=== PATIENT | male | born 1995 | race Caucasian/White ===

== ENCOUNTER → 2018-01-05 | Outpatient (CLI) | payer BC ==
[~2018-01-05] MED LIST: CEPH500T7 PO; SERT-173 PO
--- NOTE | 2018-01-05 15:23 | RADIOLOGY IMAGING REPORT ---
FACILITY: [facility] - [place] PATIENT NAME: Dago Dhillon : 1995 MR: [id number] V: [id number] EXAM DATE: ORDERING PHYSICIAN: MADDY ENCARNACION TECHNOLOGIST: Location: [facility] Patient: Dago Dhillon : 1995 Visit/Account:[id number] Date of Sevice: 01/05/2018 Exam type: CALCANEUS (HEEL) RIGHT History: Heel injury x2 weeks, getting worse Comparison: None. Findings: Two views of the right os calcis demonstrates no evidence of acute fracture. The subtalar joint appe ars intact. There is an ovoid sclerotic lesion in the right os calcis which may represent a bone isl and. IMPRESSION: 1. No evidence of fracture involving the right os calcis identified. If patient's symptoms persist cross-sectional imaging may be helpful Report Dictated By: Janay Muir MD at 01/05/2018 3:17 PM Report E-Signed By: Janay Muir MD at 01/05/2018 3:19 PM WSN:[email or web address]
== END ==
LOC: RAD 14:38
PROVIDERS: ATTEND Family Medicine
DX: M79.671 Pain in right foot (principal)

== ENCOUNTER 2018-01-09 23:22 | Observation (INO) | payer BC ==
[~2018-01-09] VITALS: Ht 193 cm; Wt 70.3 kg
--- NOTE | 2018-01-09 23:30 | ER Report ---
History and Physical Time Seen By MD: 23:26 HPI/ROS CHIEF COMPLAINT: sob/epigastric/cp HISTORY OF PRESENT ILLNESS: PT started 3 days ago with epigastric pain that goes up his sterunum. Pain is sharp. worse with lying flat or taking a deep breath. has not been eating well. no change in pain with drinking. no nauesa or vomiting. PT arrived crying and hyperventilating due to the pain. Pt stopped his lexipro 2 days ago because he read the side effects and was concerned that was making his symptoms worse. no fevers. + occasional cough. REVIEW OF SYSTEMS: Constitutional: No fever, no chills. Eyes: No discharge. ENT: No sore throat. Cardiovascular: + chest pain, no palpitations. Respiratory: + cough, + shortness of breath, + hyperventilating Gastrointestinal: + abdominal pain, no vomiting. Genitourinary: No hematuria. Musculoskeletal: No back pain. Skin: No rashes. Neurological: No headache. Psych: anxious Allergies: Coded Allergies: codeine (Verified Allergy, Mild, NIGHT TERRORS, 09/04/16) Home Meds Reported Medications Propranolol Hcl (PROPRANOLOL HCL) 10 Mg Tablet, 10 MG PO PRN Y for ANXIETY 01/09/18 Buspirone Hcl (BUSPIRONE HCL) 30 Mg Tablet, 15 MG PO BID, #10 TAB 01/09/18 Escitalopram Oxalate (LEXAPRO) 20 Mg Tablet, 10 MG PO QDAY, TAB 01/09/18 Discontinued Reported Medications Sertraline Hcl (ZOLOFT) 100 Mg Tablet, 2 TAB PO QDAY, TAB 05/13/16 Discontinued Scripts Cephalexin 500 Mg Tab (KEFLEX 500 MG TAB) 500 Mg Tablet, 500 MG PO TID, #21 TAB Prov:NANDO MARSHALL 09/04/16 Past Medical/Surgical History Pmhx, anxiety, depression Pshx: neg Reviewed Nurses Notes: Yes Hx Smoking: No Smoking Status: Never Smoker Hx Substance Use Disorder: No Constitutional Vital Sign - Last 24 Hours 01/09/18 01/09/18 01/09/18 01/09/18 23:28 23:30 23:37 23:52 Temp 98.5 Pulse 137 124 112 Resp 26 24 20 B/P (MAP) 153/107 131/77 (95) Pulse Ox 99 100 96 O2 Delivery Room Air 01/10/18 01/10/18 01/10/18 01/10/18 00:00 00:07 00:22 00:30 Pulse 100 93 Resp 12 B/P (MAP) 137/92 (107) 129/79 (96) Pulse Ox 99 01/10/18 00:37 Pulse ??? Resp 8 Pulse Ox 82 Physical Exam General Appearance: The patient is alert, tearful and hyperventilating Eyes: Pupils equal and round no pallor or injection, EOMI ENT: no pharyngeal erythema or exudates, Mucous membranes are moist Respiratory: There are no retractions, lungs are clear to auscultation. Cardiovascular: Regular rate and rhythm. pulses are equal and symmetrical Gastrointestinal: Abdomen is soft and non tender, no masses, bowel sounds normal, no guarding, no rigidity or rebound Neurological: Cranial nerves II-XII grossly intact, no sensory or motor loss Skin: Warm and dry, no rashes. Musculoskeletal: Neck is supple non tender, no vertebral tenderness Extremities are nontender, non swollen and have full range of motion. DIFFERENTIAL DIAGNOSIS: After history and physical exam differential diagnosis was considered for anxiety, gerd, pud, pleurisy, pericarditis, pe, pancreatitis , pneumonia, ptx. Medical Decision Making Data Points Result Diagram: 01/10/18 0030 01/10/18 0030 Laboratory Hematology Test 01/09/18 00:00 01/09/18 22:32 01/09/18 23:46 01/10/18 00:00 Troponin I < 0.012 ng/ml D-Dimer Quantitative (PE/DVT) < 0.27 ug/ml (0-0.50) Total Bilirubin 0.9 mg/dl (0.2-1.3) Aspartate Amino Transf (AST/SGOT) 22 U/L (0-35) Alanine Aminotransferase (ALT/SGPT) 22 U/L (0-56) Alkaline Phosphatase 113 U/L (0-126) Total Protein 8.7 gm/dl (6.3-8.2) Albumin 4.9 g/dl (3.5-5.0) Lipase 84 U/L (23-300) Influenza Virus Type A (PCR) Negative (NEGATIVE) Influenza Virus Type B (PCR) Negative (NEGATIVE) Urine Opiates Screen Negative Urine Barbiturates Screen Negative Ur Tricyclic Antidepressants Screen Negative Urine Phencyclidine Screen Negative Urine Amphetamines Screen Negative Urine Benzodiazepines Screen Negative Urine Cocaine Screen Negative Urine Cannabinoids Screen Positive Test 01/10/18 00:30 Red Blood Count 4.94 M/uL (4.00-5.60) Mean Corpuscular Volume 88.1 fL (80.0-96.0) Mean Corpuscular Hemoglobin 32.0 pg (26.0-33.0) Mean Corpuscular Hemoglobin Concent 36.4 g/dL (32.0-36.0) Red Cell Distribution Width 13.2 % (11.5-14.5) Mean Platelet Volume 8.0 fL (7.2-11.1) Neutrophils (%) (Auto) 63.3 % (39.4-72.5) Lymphocytes (%) (Auto) 27.7 % (17.6-49.6) Monocytes (%) (Auto) 7.2 % (4.1-12.4) Eosinophils (%) (Auto) 1.4 % (0.4-6.7) Basophils (%) (Auto) 0.4 % (0.3-1.4) Nucleated RBC Relative Count (auto) 0.0 /100WBC Neutrophils # (Auto) 7.5 K/uL (2.0-7.4) Lymphocytes # (Auto) 3.3 K/uL (1.3-3.6) Monocytes # (Auto) 0.9 K/uL (0.3-1.0) Eosinophils # (Auto) 0.2 K/uL (0.0-0.5) Basophils # (Auto) 0.0 K/uL (0.0-0.1) Nucleated RBC Absolute Count (auto) 0.00 K/uL Sodium Level 139 mmol/L (137-145) Potassium Level 2.8 mmol/L (3.5-5.0) Chloride Level 102 mmol/L (98-107) Carbon Dioxide Level 25 mmol/L (22-30) Blood Urea Nitrogen 16 mg/dl (9-21) Creatinine 0.90 mg/dl (0.66-1.25) Glomerular Filtration Rate Calc > 60.0 Random Glucose 81 mg/dl (75-110) Calcium Level 8.9 mg/dl (8.4-10.2) Magnesium Level 1.6 mg/dl (1.7-2.2) Chemistry Test 01/09/18 00:00 01/09/18 22:32 01/09/18 23:46 01/10/18 00:00 Troponin I < 0.012 ng/ml D-Dimer Quantitative (PE/DVT) < 0.27 ug/ml (0-0.50) Total Bilirubin 0.9 mg/dl (0.2-1.3) Aspartate Amino Transf (AST/SGOT) 22 U/L (0-35) Alanine Aminotransferase (ALT/SGPT) 22 U/L (0-56) Alkaline Phosphatase 113 U/L (0-126) Total Protein 8.7 gm/dl (6.3-8.2) Albumin 4.9 g/dl (3.5-5.0) Lipase 84 U/L (23-300) Influenza Virus Type A (PCR) Negative (NEGATIVE) Influenza Virus Type B (PCR) Negative (NEGATIVE) Urine Opiates Screen Negative Urine Barbiturates Screen Negative Ur Tricyclic Antidepressants Screen Negative Urine Phencyclidine Screen Negative Urine Amphetamines Screen Negative Urine Benzodiazepines Screen Negative Urine Cocaine Screen Negative Urine Cannabinoids Screen Positive Test 01/10/18 00:30 White Blood Count 11.8 k/uL (4.5-11.0) Red Blood Count 4.94 M/uL (4.00-5.60) Hemoglobin 15.8 g/dL (14.0-18.0) Hematocrit 43.5 % (42.0-52.0) Mean Corpuscular Volume 88.1 fL (80.0-96.0) Mean Corpuscular Hemoglobin 32.0 pg (26.0-33.0) Mean Corpuscular Hemoglobin Concent 36.4 g/dL (32.0-36.0) Red Cell Distribution Width 13.2 % (11.5-14.5) Platelet Count 232 K/uL (150-450) Mean Platelet Volume 8.0 fL (7.2-11.1) Neutrophils (%) (Auto) 63.3 % (39.4-72.5) Lymphocytes (%) (Auto) 27.7 % (17.6-49.6) Monocytes (%) (Auto) 7.2 % (4.1-12.4) Eosinophils (%) (Auto) 1.4 % (0.4-6.7) Basophils (%) (Auto) 0.4 % (0.3-1.4) Nucleated RBC Relative Count (auto) 0.0 /100WBC Neutrophils # (Auto) 7.5 K/uL (2.0-7.4) Lymphocytes # (Auto) 3.3 K/uL (1.3-3.6) Monocytes # (Auto) 0.9 K/uL (0.3-1.0) Eosinophils # (Auto) 0.2 K/uL (0.0-0.5) Basophils # (Auto) 0.0 K/uL (0.0-0.1) Nucleated RBC Absolute Count (auto) 0.00 K/uL Glomerular Filtration Rate Calc > 60.0 Calcium Level 8.9 mg/dl (8.4-10.2) Magnesium Level 1.6 mg/dl (1.7-2.2) Coagulation Test 01/09/18 22:32 D-Dimer Quantitative (PE/DVT) < 0.27 ug/ml Toxicology Test 01/10/18 00:00 Urine Opiates Screen Negative Urine Barbiturates Screen Negative Ur Tricyclic Antidepressants Screen Negative Urine Phencyclidine Screen Negative Urine Amphetamines Screen Negative Urine Benzodiazepines Screen Negative Urine Cocaine Screen Negative Urine Cannabinoids Screen Positive EKG/Imaging EKG Interpretation Initial EKG: Limited due to pt is hyperventilating and moving. WIll medicate and repeat Second EKG: nsr @ [address] changes. Imaging no cardiomegally, no ptx, + pneumomediastinum ED Course/Re-evaluation Clinical Indication for ER IV: Hydration, IV Access ED Course 01/10/2018 12:13:54 am Pt is feeling much better after the ativan. no longer has chest pain or sob. will repeat labs due to I suspect it is realted to anxiety. Will also repeat ekg due to I suspect artifact. 01/10/2018 1:17:40 am PTs labs improved with redraw once no longer hyperventilating accept for pts potassiujm and magnesium. will replace. 01/10/2018 1:47:45 am XRAY shows pneumomediastinum. Spoke with surgery, Dr. Cisse. States that if we are able to get an esophagram tonight then he can go home if normal. If we can not get it after hours then pt can be admitted to his service and kept npo. 01/10/2018 2:00:44 am biochemistry technician spoke with [facility] radiology who states that we are unable to get esophagram tonight due to need an inhouse radiologist which we do not have available. will keep npo and admit to [facility]. Decision to Disposition Date: Jan 10, 2018 Decision to Disposition Time: 01:53 Critical Care Time I spent a total of 30 minutes of critical care time in obtaining history, performing a physical exam, bedside monitoring of interventions, collecting and interpreting tests and discussion with consultants but not including time spent performing procedures. Depart Departure Latest Vital Signs Vital Signs Date Time Temp Pulse Resp B/P (MAP) Pulse Ox O2 Delivery O2 Flow Rate FiO2 01/10/18 00:37 ??? 8 82 01/10/18 00:30 129/79 (96) 01/09/18 23:28 98.5 Room Air Impression: Primary Impression: Hypokalemia Additional Impressions: Hypomagnesemia Pneumomediastinum Condition: Condition Unchanged Disposition: Admitted from ER Referrals: RICK BENNETT (PCP) Problem Qualifiers MIAH EM DO Jan 09, 2018 23:30
[2018-01-09] MEDS ORDERED: PROP10TA58 PO (23:34)
[2018-01-09] MEDS ORDERED: BUSP30TA18 PO (23:34)
[2018-01-09] MEDS ORDERED: ESCI20TA38 PO (23:34)
[2018-01-09] MEDS ORDERED: FAMOTIDINE(*) 20MG/50ML PREMIX 50 ML IVPB ONE (23:35)
[2018-01-09] MEDS ORDERED: LORazepam 2 MG/ML VIAL IVP ONE (23:35)
[2018-01-09] MEDS ORDERED: NS(*) 0.9% 1000 ML BAG 1,000 ML IV ONE (23:35)
[2018-01-10] LABS: PLATELET COUNT, AUTOMATED 337 K/uL (150-450)
[2018-01-10 00:37] LABS: PLATELET COUNT, AUTOMATED 232 K/uL (150-450)
--- NOTE | 2018-01-10 00:45 | EKG ---
FAC[place] [facility] [place]IENT NAME: LOGAN SMALL : [id number] MR: [id number] V: [id number] EXAM DATE: ORDERING PHYSICIAN: MIAH EM TECHNOLOGIST: LANETTE Test Reason : CP Blood Pressure : / mmHG Vent. Rate : 131 BPM Atrial Rate : 131 BPM P-R Int : 000 ms QRS Dur : 078 ms QT Int : 394 ms P-R-T Axes : 000 087 082 degrees QTc Int : 581 ms Supraventricular tachycardia with fusion complexes Inferior infarct , possibly acute ACUTE MS Abnormal ECG No previous ECGs available Confirmed by SRUTHI SOLIS ([id number]) on 01/10/2018 7:09:32 AM Referred By: Confirmed By:SRUTHI SOLIS
--- NOTE | 2018-01-10 00:45 | EKG ---
FACILITY: [facility] PATIENT NAME: LOGAN SMALL : [id number] MR: [id number] V: [id number] EXAM DATE: ORDERING PHYSICIAN: MIAH EM TECHNOLOGIST: LANETTE Test Reason : REPEAT EKG Blood Pressure : / mmHG Vent. Rate : 098 BPM Atrial Rate : 098 BPM P-R Int : 140 ms QRS Dur : 078 ms QT Int : 326 ms P-R-T Axes : 079 080 069 degrees QTc Int : 416 ms Normal sinus rhythm Possible Left atrial enlargement Borderline ECG When compared with ECG of 09-JAN-2018 23:34, fusion complexes are no longer present Criteria for Inferior infarct are no longer present ST no longer elevated in Inferior leads ST no longer depressed in Anterolateral leads T wave amplitude has decreased in Inferior leads Confirmed by SRUTHI SOLIS ([id number]) on 01/10/2018 7:09:50 AM Referred By: Confirmed By:SRUTHI SOLIS
[2018-01-10] MEDS ORDERED: POTASSIUM CHL PWDR 20 MEQ PKT PO ONE (01:00)
[2018-01-10] MEDS ORDERED: MAGNESIUM SUL/D5W* 1 GM/100 ML 100 ML IVPB ONE (01:00)
--- NOTE | 2018-01-10 01:25 | RADIOLOGY IMAGING REPORT ---
FACILITY: [facility] PATIENT NAME: Dago Dhillon : 1995 MR: [id number] V: [id number] EXAM DATE: ORDERING PHYSICIAN: MIAH EM TECHNOLOGIST: Location: [facility] [place] Patient: Dago Dhillon : 1995 Visit/Account:[id number] Date of Sevice: 01/09/2018 CHEST PA AND LAT COMPARISONS: None. ADDITIONAL PERTINENT HISTORY: Chest pain for one week. FINDINGS: Cardiomediastinal silhouette: Exam underlying pneumomediastinum. Pulmonary vasculature: Negative. Lung caldwell: Negative. Pleural spaces: Negative. Osseous structures: Negative. Surrounding soft tissues: Negative. IMPRESSION: 1. Underlying pneumomediastinum. 2. No other abnormality noted involving the chest. Results were discussed with MIAH EM at 01/10/2018 1:20 AM. Report Dictated By: Roland Obrien MD at 01/10/2018 1:16 AM Report E-Signed By: Roland Obrien MD at 01/10/2018 1:20 AM WSN:[email or web address]
[2018-01-10] MEDS ORDERED: KCL (*) 20 MEQ/100 ML PREMIX 100 ML IV ONE ×2 (01:45→04:00)
[2018-01-10] MEDS ORDERED: fentaNYL CITR 100 MCG/2 ML AMP IVP ONE (01:45)
[2018-01-10] MEDS ORDERED: NS(*) 0.9% 1000 ML BAG 1,000 ML IV PRN ×3 (02:15→03:15)
[2018-01-10 02:41] VITALS: BP 139/78
[2018-01-10] MEDS ORDERED: fentaNYL CITR 100 MCG/2 ML AMP IVP PRN ×2 (03:15→04:30)
[2018-01-10] MEDS ORDERED: KCL (*) 20 MEQ/100 ML PREMIX 100 ML IVPB ONE (03:20)
[2018-01-10 07:18] VITALS: BP 151/68
[2018-01-10 08:27] LABS: PLATELET COUNT, AUTOMATED 215 K/uL (150-450)
--- NOTE | 2018-01-10 08:31 | General Surgery 1 H&P ---
History of Present Illness Chief Complaint chest pain History of Present Illness 22 yo healthy male with 4 day history of chest pain. it increased in severity and forced him to the ed. it was sudden onset and sharp in the mid chest. it began radiating up his neck yesterday. no history of trauma. no nausea or emesis. no history of peptic ulcer disease. he does smoke marijuana. [place] [id number]. chest xray shows pneumomediastinum. History Other Past Surgeries: none Home Meds Reported Medications Propranolol Hcl (PROPRANOLOL HCL) 10 Mg Tablet, 10 MG PO PRN Y for ANXIETY 01/09/18 Buspirone Hcl (BUSPIRONE HCL) 30 Mg Tablet, 15 MG PO BID, #10 TAB 01/09/18 Escitalopram Oxalate (LEXAPRO) 20 Mg Tablet, 10 MG PO QDAY, TAB 01/09/18 Discontinued Reported Medications Sertraline Hcl (ZOLOFT) 100 Mg Tablet, 2 TAB PO QDAY, TAB 05/13/16 Discontinued Scripts Cephalexin 500 Mg Tab (KEFLEX 500 MG TAB) 500 Mg Tablet, 500 MG PO TID, #21 TAB Prov:NANDO MARSHALL HIGHWAY ENGINEERING TECHNICIAN 09/04/16 Allergies: Coded Allergies: codeine (Verified Allergy, Mild, NIGHT TERRORS, 01/10/18) Family History: Anxiety disorder MOTHER FH: depression MOTHER FH: diabetes mellitus MOTHER Review of Systems All Systems Reviewed/Normal: Yes, Except as Noted Exam Vital Signs Date Time Temp Pulse Resp B/P (MAP) Pulse Ox O2 Delivery O2 Flow Rate FiO2 01/10/18 07:21 98 Room Air 01/10/18 07:18 98.3 79 12 151/68 (95) General Appearance: Alert, Awake, No Acute Distress Neck: Other (no palpable crepitus) Respiratory: Clear to Auscultation GI: Abd Soft and Non-Tender Medical Decision Making Data Points Result Diagram: 01/10/18 0030 01/10/18 0030 Assessment and Plan Problems: (1) Pneumomediastinum Status: Acute Assessment & Plan: will admit for observation. will get ugi series to rule out esophageal problem. repeat cxr and give pain meds. Copies to: RELL CASTILLO MD Venous Thromboembolism Antithrombotics Is Pt On Any Antithrombotics?: No RELL CASTILLO MD Jan 10, 2018 08:31
[2018-01-10] MEDS ORDERED: KCL 2 MEQ/ML 20 MEQ/10 ML VIAL 20 MEQ in NS(*) 0.9% 1000 ML BAG 1,000 ML IV PRN (08:37)
[2018-01-10] MEDS ORDERED: DIATRIZOATE MEGL/DIATRIZOA SOD 120 ML SOLN PO ONE (08:39)
[2018-01-10] MEDS ORDERED: KCL/NS* 20 MEQ/1000 ML PREMIX 1,000 ML IV PRN (08:50)
--- NOTE | 2018-01-10 10:14 | General Surgery Progress Note ---
Subjective Progress Notes Subjective feeling better Physical Exam Vital Signs Date Time Temp Pulse Resp B/P (MAP) Pulse Ox O2 Delivery O2 Flow Rate FiO2 01/10/18 07:21 98 Room Air 01/10/18 07:18 98.3 79 12 151/68 (95) Intake and Output 01/11/18 07:00 Intake Total 884 ml Balance 884 ml Intake IV Total 884 ml Result Diagram: 01/10/18 0808 01/10/18 0030 Assessment and Plan Problems: (1) Pneumomediastinum Status: Acute Assessment & Plan: will admit for observation. will get ugi series to rule out esophageal problem. repeat cxr and give pain meds. 01/10/18 no evidence of esophageal leak, will try po diet and po analgesia Exam Sepsis Risk: No Definite Risk RELL CASTILLO MD Jan 10, 2018 10:14
[2018-01-10] MEDS ORDERED: PROPRANOLOL HCL 20 MG TAB PO PRN (10:15)
[2018-01-10] MEDS ORDERED: APAP/HYDROCODONE 325/5 TAB PO PRN (10:15)
[2018-01-10] MEDS ORDERED: POTASSIUM CHL 20 MEQ TABCR PO SCH (10:30)
--- NOTE | 2018-01-10 10:56 | RADIOLOGY IMAGING REPORT ---
FACILITY: [facility] - [place] PATIENT NAME: Dago Dhillon : 1995 MR: [id number] V: [id number] EXAM DATE: ORDERING PHYSICIAN: RELL CASTILLO TECHNOLOGIST: Location: [facility] Patient: Dago Dhillon : 1995 Visit/Account:[id number] Date of Sevice: 01/10/2018 Exam type: CHEST PA AND LAT History: pneumomediastinum Comparison: January 10, 2018 12:58 AM. Findings: Again noted is the previously described pneumomediastinum perhaps minimally improved. There is no ev idence of mediastinal shift, pleural effusion or pulmonary consolidation. The cardiac silhouette kori ears normal.. Visualized bones are unremarkable IMPRESSION: 1. Pneumomediastinum slightly decreased when compared to the prior study performed earlier in the da y Report Dictated By: Janay Muir MD at 01/10/2018 10:51 AM Report E-Signed By: Janay Muir MD at 01/10/2018 10:52 AM WSN:[email or web address]
[2018-01-10 11:15] VITALS: BP 152/77
[2018-01-10 12:37] VITALS: Ht 193 cm; Wt 70.3 kg
--- NOTE | 2018-01-10 14:26 | General Surgery Progress Note ---
Subjective Progress Notes Subjective feeling better, moving well. still with some pain Physical Exam Vital Signs Date Time Temp Pulse Resp B/P (MAP) Pulse Ox O2 Delivery O2 Flow Rate FiO2 01/10/18 11:15 97.6 70 12 152/77 (102) 98 Room Air Intake and Output 01/11/18 07:00 Intake Total 1684 ml Balance 1684 ml Intake Oral 800 ml IV Total 884 ml # Voids 1 # Bowel Movements 1 General Appearance: Alert, Awake, No Acute Distress Chest: Other (cxr slightly improved) Result Diagram: 01/10/18 0808 01/10/18 0030 Assessment and Plan Problems: (1) Pneumomediastinum Status: Acute Assessment & Plan: will admit for observation. will get ugi series to rule out esophageal problem. repeat cxr and give pain meds. 01/10/18 no evidence of esophageal leak, will try po diet and po analgesia 01/10/18 stable home today Exam Sepsis Risk: No Definite Risk RELL CASTILLO MD Jan 10, 2018 14:26
[2018-01-10] MEDS ORDERED: HYDR-4309 PO (14:27)
--- NOTE | 2018-01-10 14:28 | Short(Outpt) Discharge Summary ---
Discharge Summary Reason for Hosp/Final Diag: (1) Pneumomediastinum Status: Acute Hospital Course & Plan: will admit for observation. will get ugi series to rule out esophageal problem. repeat cxr and give pain meds. 01/10/18 no evidence of esophageal leak, will try po diet and po analgesia 01/10/18 stable home today Departure Discharge to: Home Discharge Instructions Home Meds Active Scripts Hydrocodone Bit/Acetaminophen (NORCO 5-325 TABLET) 1 Each Tablet, 1 EACH PO Q4H Y for PAIN, #30 TAB Prov:RELL CASTILLO MD 01/10/18 Reported Medications Propranolol Hcl (PROPRANOLOL HCL) 10 Mg Tablet, 10 MG PO PRN Y for ANXIETY 01/09/18 Buspirone Hcl (BUSPIRONE HCL) 30 Mg Tablet, 15 MG PO BID, #10 TAB 01/09/18 Escitalopram Oxalate (LEXAPRO) 20 Mg Tablet, 10 MG PO QDAY, TAB 01/09/18 Discontinued Reported Medications Sertraline Hcl (ZOLOFT) 100 Mg Tablet, 2 TAB PO QDAY, TAB 05/13/16 Discontinued Scripts Cephalexin 500 Mg Tab (KEFLEX 500 MG TAB) 500 Mg Tablet, 500 MG PO TID, #21 TAB Prov:NANDO MARSHALLP 09/04/16 Diet: Regular Activity: No Heavy Lifting, No Exertion Special Instructions: to see me in one week, call [phone] for apt or problems RELL CASTILLO MD Jan 10, 2018 14:28
--- NOTE | 2018-01-10 16:51 | RADIOLOGY IMAGING REPORT ---
FACILITY: [facility] - [place] PATIENT NAME: Dago Dhillon : 1995 MR: [id number] V: [id number] EXAM DATE: ORDERING PHYSICIAN: RELL CASTILLO TECHNOLOGIST: Location: [facility] Patient: Dago Dhillon : 1995 Visit/Account:[id number] Date of Sevice: 01/10/2018 Exam type: ESOPHAGRAM History: pneumomediastinum Comparison: PA and lateral chest performed today. Findings: Esophagram was performed with water-soluble contrast. The pneumomediastinum is again noted. There i s no evidence of extraluminal extravasation of contrast from from the esophagus. There is no demonst ration of esophageal narrowing or intraluminal mass. Gastroesophageal reflux was not observed.. The fluoroscopy dose area product was 254.94 micro-Munguia per meter squared IMPRESSION: 1. There is no demonstration of extraluminal extravasation of water-soluble contrast from the esopha navin in this patient with unknown pneumomediastinum Report Dictated By: Janay Muir MD at 01/10/2018 4:45 PM Report E-Signed By: Janay Muir MD at 01/10/2018 4:47 PM WSN:[email or web address]
[2018-01-10] MEDS ORDERED: busPIRone HCL 5 MG TAB PO SCH (21:00)
[2018-01-11] MEDS ORDERED: ESCITALOPRAM OXALATE 10 MG TAB PO SCH (09:00)
== END 2018-01-10 15:00 | disposition home or self-care (01) ==
LOC: ER 23:49 → INTOOBSV 01-10 02:04 → MED 01-10 02:04
PROVIDERS: ADMIT Surgery; ATTEND Surgery
DX: E87.6 Hypokalemia (principal); E83.42 Hypomagnesemia; J98.2 Interstitial emphysema
CPT/HCPCS: 36415; 71046; 74220; 80305; 83690; 83735; 84484; 85025; 85379; 87502; 93005; 96365; 96367; 96375; 99285; G0378; J2060; J3010; J3475; J3480; J3490; J7030; 82040; 82247; 82310; 82374; 82435; 82565; 82947; 84075; 84132; 84155; 84295; 84450; 84460; 84520

== ENCOUNTER → 2018-01-18 | Outpatient (CLI) | payer BC ==
[2018-01-10 12:37] VITALS: BMI 18.9
[~2018-01-18] MED LIST changes: +BUSP30TA18 PO; +ESCI20TA38 PO; +HYDR-4309 PO; +PROP10TA58 PO
--- NOTE | 2018-01-18 14:49 | RADIOLOGY IMAGING REPORT ---
FACILITY: [facility] - [place] PATIENT NAME: Dago Dhillon : 1995 MR: [id number] V: [id number] EXAM DATE: ORDERING PHYSICIAN: RELL CASTILLO TECHNOLOGIST: [place] [facility] [place] Dago Dhill[place] : 1995 Visit/Account:[id number] Date of Sevice: 01/18/2018 Exam type: CHEST PA AND LAT History: History of pneumomediastinum Comparison: January 10, 2018. Findings: There has been interval resolution of the previously noted pneumomediastinum. There is no evidence o f pneumothorax or pulmonary consolidation. No evidence of pleural effusions upon edema. Cardiac chelsi houette is normal IMPRESSION: 1. Interval resolution of the previously noted pneumomediastinum Report Dictated By: Janay Muir MD at 01/18/2018 2:44 PM Report E-Signed By: Janay Muir MD at 01/18/2018 2:46 PM WSN:[email or web address]
== END ==
LOC: RAD 14:15
PROVIDERS: ATTEND Surgery
DX: J98.2 Interstitial emphysema (principal)
CPT/HCPCS: 71046

== ENCOUNTER → 2018-04-03 | Outpatient (CLI) | payer BC ==
[2018-01-10 12:37] VITALS: BMI 18.9
--- NOTE | 2018-04-03 15:46 | RADIOLOGY IMAGING REPORT ---
FACILITY: [facility] PATIENT NAME: Dago Dhillon : 1995 MR: [id number] V: [id number] EXAM DATE: ORDERING PHYSICIAN: VANESSA BANSAL TECHNOLOGIST: Location: [facility] [place] Patient: Dago Dhillon : 1995 Visit/Account:[id number] Date of Sevice: 04/03/2018 Exam type: CHEST PA AND LAT History: History of pneumothorax, increased shortness of breath x2 weeks Comparison: January 18, 2018. Findings: There is no evidence of a pneumothorax or pneumomediastinum. No evidence of pulmonary consolidation or pleural effusions. Cardiac silhouette is normal. There is very mild anterior wedging of the lowe r thoracic vertebral bodies that appears stable IMPRESSION: 1. No acute cardiac pulmonary process is seen Report Dictated By: Janay Muir MD at 04/03/2018 3:40 PM Report E-Signed By: Janay Muir MD at 04/03/2018 3:41 PM WSN:[email or web address]
== END ==
LOC: RAD 15:03
PROVIDERS: ATTEND Nurse Practitioner Psychiatric/Mental Health
DX: Z87.09 Personal history of other diseases of the respiratory system (principal)
CPT/HCPCS: 71046

== ENCOUNTER → 2018-06-29 | Outpatient (CLI) | payer BC ==
[2018-01-10 12:37] VITALS: BMI 18.9
== END ==
LOC: LAB 13:21
PROVIDERS: ATTEND Nurse Practitioner Family
DX: R06.00 Dyspnea, unspecified (principal)
CPT/HCPCS: 36415; 84443

== ENCOUNTER 2019-03-15 13:41 | Emergency (ER) | payer BC ==
[2018-01-10 12:37] VITALS: Wt 72.6 kg
[~2019-03-15 13:41] MED LIST changes: -HYDR-4309 PO; +HYDR-653 PO
--- NOTE | 2019-03-15 14:00 | ER Report ---
History and Physical Time Seen By MD: 13:57 Hx. of Stated Complaint: PATIENT WAS AT THE CLINIC AND WONDERING AROUND. WHEN SOMEONE CAME TO HELP, SAID HE NEEDED HELP. WHEN TALKING TO [facility] PATIENT, DOES NOT WANT TO ANSWER QUESTIONS. FINALLY REPORTED THAT HE WANTS TO BE ALIVE. WHEN ASKED IF HE WANTED TO KILL HIMSELF, PATIENT SHOOK HIS HEAD SAYING YES HPI/ROS CHIEF COMPLAINT: Suicidal HISTORY OF PRESENT ILLNESS: Patient is a 23-year-old male who was walking around outside the institution was seen by staff told the staff that he's been drinking heavily and wants to throw himself off a building to kill himself and noticed multiple scratches on his left arm and brought him here for emergent evaluation. Arrival here he does admit to drinking daily says he hasn't worked in several days and that he just wants to go to sleep and not wake up when pressed he said he is wants to when pressed always has problems off a building. Patient states she's never try to kill him self before he was on lithium stopped about 4-6 months ago he does have multiple very shallow superficial scratches on the inner portion of his left arm which she said he's been doing that for quite some time patient denies any homicidal ideation but definitely says he wants to kill himself REVIEW OF SYSTEMS: Respiratory: No cough, no dyspnea. Cardiovascular: No chest pain, no palpitations. Gastrointestinal: No vomiting, no abdominal pain. Musculoskeletal: No back pain. Remainder of the 14 system rev: Yes Allergies: Coded Allergies: codeine (Verified Allergy, Mild, NIGHT TERRORS, 01/10/18) Home Meds Active Scripts Hydrocodone Bit/Acetaminophen (NORCO 5-325 TABLET) 1 Each Tablet, 1 EACH PO Q4H PRN for PAIN, #30 TAB Prov:RELL CASTILLO MD 01/10/18 Reported Medications Propranolol Hcl (PROPRANOLOL HCL) 10 Mg Tablet, 10 MG PO PRN PRN for ANXIETY 01/09/18 Buspirone Hcl (BUSPIRONE HCL) 30 Mg Tablet, 15 MG PO BID, #10 TAB 01/09/18 Escitalopram Oxalate (LEXAPRO) 20 Mg Tablet, 10 MG PO QDAY, TAB 01/09/18 Reviewed Nurses Notes: Yes Old Medical Records Reviewed: Yes Hx Smoking: Yes (1-2per week) Smoking Status: Former Smoker Hx Substance Use Disorder: Yes (frequent smoker for 1 year) Hx Alcohol Use: Yes (1/month) Constitutional Vital Sign - Last 24 Hours 03/15/19 13:47 Pulse 111 Resp 18 B/P (MAP) 160/98 Pulse Ox 93 O2 Delivery Room Air Physical Exam General Appearance: The patient is alert, has no immediate need for airway protection and no current signs of toxicity. Appears intoxicated Eyes: Pupils equal and round no injection. Respiratory: Chest is non tender, lungs are clear to auscultation. Cardiac: regular rate and rhythm [ ] Gastrointestinal: Abdomen is soft and non tender, no masses, bowel sounds normal. Musculoskeletal: Neck: Neck is supple and non tender. Extremities have full range of motion and are non tender. Skin: Multiple superficial linear scratches on the inner portion of his left forearm Neurological examination patient is neurologically intact over notably intoxicated able to ambulate without issue [place] examination patient is suicidal and homicidal ideation or intent suicidal with plan purpose alcohol is admitted to an onboard expressing some depressive disorder as well as potentially antisocial. DIFFERENTIAL DIAGNOSIS: After history and physical exam differential diagnosis was considered for suicidal ideation with a plan in place alcohol abuse Medical Decision Making Data Points Result Diagram: 03/15/19 1405 03/15/19 1405 Laboratory Hematology Test 03/15/19 14:00 03/15/19 14:05 Urine Color Colorless Urine Clarity Clear Urine pH 6.0 pH (4.8-9.5) Urine Specific Ethel 1.001 Urine Protein Negative mg/dL (NEGATIVE) Urine Glucose (UA) Negative mg/dL (NEGATIVE) Urine Ketones Negative mg/dL (NEGATIVE) Urine Blood Small (NEGATIVE) Urine Nitrite Negative (NEGATIVE) Urine Bilirubin Negative (NEGATIVE) Urine Urobilinogen Negative mg/dL (0.2-1.9) Urine Leukocyte Esterase Negative (NEGATIVE) Urine RBC <1 /HPF (0-2/HPF) Urine WBC None /HPF (0-5/HPF) Urine Squamous Epithelial Cells None /LPF (</=FEW) Urine Bacteria Negative /HPF (NONE-FEW) Urine Mucus None /HPF (NONE-FEW) Urine Opiates Screen Negative Urine Barbiturates Screen Negative Ur Tricyclic Antidepressants Screen Negative Urine Phencyclidine Screen Negative Urine Amphetamines Screen Negative Urine Benzodiazepines Screen Negative Urine Cocaine Screen Negative Urine Cannabinoids Screen Negative Red Blood Count 4.83 M/uL (4.00-5.60) Mean Corpuscular Volume 97.6 fL (80.0-96.0) Mean Corpuscular Hemoglobin 34.2 pg (26.0-33.0) Mean Corpuscular Hemoglobin Concent 35.0 g/dL (32.0-36.0) Red Cell Distribution Width 13.2 % (11.5-14.5) Mean Platelet Volume 7.2 fL (7.2-11.1) Neutrophils (%) (Auto) 49.7 % (39.4-72.5) Lymphocytes (%) (Auto) 42.1 % (17.6-49.6) Monocytes (%) (Auto) 7.2 % (4.1-12.4) Eosinophils (%) (Auto) 0.6 % (0.4-6.7) Basophils (%) (Auto) 0.4 % (0.3-1.4) Nucleated RBC Relative Count (auto) 1.7 /100WBC Neutrophils # (Auto) 5.1 K/uL (2.0-7.4) Lymphocytes # (Auto) 4.3 K/uL (1.3-3.6) Monocytes # (Auto) 0.7 K/uL (0.3-1.0) Eosinophils # (Auto) 0.1 K/uL (0.0-0.5) Basophils # (Auto) 0.0 K/uL (0.0-0.1) Nucleated RBC Absolute Count (auto) 0.17 K/uL Sodium Level 146 mmol/L (137-145) Potassium Level 3.9 mmol/L (3.5-5.0) Chloride Level 105 mmol/L (98-107) Carbon Dioxide Level 26 mmol/L (22-30) Blood Urea Nitrogen 12 mg/dl (9-21) Creatinine 0.90 mg/dl (0.66-1.25) Glomerular Filtration Rate Calc > 60.0 Random Glucose 123 mg/dl (75-110) Calcium Level 8.9 mg/dl (8.4-10.2) Magnesium Level 2.3 mg/dl (1.7-2.2) Total Bilirubin 0.8 mg/dl (0.2-1.3) Aspartate Amino Transf (AST/SGOT) 37 U/L (0-35) Alanine Aminotransferase (ALT/SGPT) 52 U/L (0-56) Alkaline Phosphatase 94 U/L (0-126) Total Protein 7.8 g/dl (6.3-8.2) Albumin 4.6 g/dl (3.5-5.0) Salicylates Level < 10 mg/L Salicylate Last Dose Date Unk Acetaminophen Level < 10 ug/ml Serum Alcohol 358 mg/dl Chemistry Test 03/15/19 14:00 03/15/19 14:05 Urine Color Colorless Urine Clarity Clear Urine pH 6.0 pH (4.8-9.5) Urine Specific Ethel 1.001 Urine Protein Negative mg/dL (NEGATIVE) Urine Glucose (UA) Negative mg/dL (NEGATIVE) Urine Ketones Negative mg/dL (NEGATIVE) Urine Blood Small (NEGATIVE) Urine Nitrite Negative (NEGATIVE) Urine Bilirubin Negative (NEGATIVE) Urine Urobilinogen Negative mg/dL (0.2-1.9) Urine Leukocyte Esterase Negative (NEGATIVE) Urine RBC <1 /HPF (0-2/HPF) Urine WBC None /HPF (0-5/HPF) Urine Squamous Epithelial Cells None /LPF (</=FEW) Urine Bacteria Negative /HPF (NONE-FEW) Urine Mucus None /HPF (NONE-FEW) Urine Opiates Screen Negative Urine Barbiturates Screen Negative Ur Tricyclic Antidepressants Screen Negative Urine Phencyclidine Screen Negative Urine Amphetamines Screen Negative Urine Benzodiazepines Screen Negative Urine Cocaine Screen Negative Urine Cannabinoids Screen Negative White Blood Count 10.3 k/uL (4.5-11.0) Red Blood Count 4.83 M/uL (4.00-5.60) Hemoglobin 16.5 g/dL (14.0-18.0) Hematocrit 47.1 % (42.0-52.0) Mean Corpuscular Volume 97.6 fL (80.0-96.0) Mean Corpuscular Hemoglobin 34.2 pg (26.0-33.0) Mean Corpuscular Hemoglobin Concent 35.0 g/dL (32.0-36.0) Red Cell Distribution Width 13.2 % (11.5-14.5) Platelet Count 239 K/uL (150-450) Mean Platelet Volume 7.2 fL (7.2-11.1) Neutrophils (%) (Auto) 49.7 % (39.4-72.5) Lymphocytes (%) (Auto) 42.1 % (17.6-49.6) Monocytes (%) (Auto) 7.2 % (4.1-12.4) Eosinophils (%) (Auto) 0.6 % (0.4-6.7) Basophils (%) (Auto) 0.4 % (0.3-1.4) Nucleated RBC Relative Count (auto) 1.7 /100WBC Neutrophils # (Auto) 5.1 K/uL (2.0-7.4) Lymphocytes # (Auto) 4.3 K/uL (1.3-3.6) Monocytes # (Auto) 0.7 K/uL (0.3-1.0) Eosinophils # (Auto) 0.1 K/uL (0.0-0.5) Basophils # (Auto) 0.0 K/uL (0.0-0.1) Nucleated RBC Absolute Count (auto) 0.17 K/uL Glomerular Filtration Rate Calc > 60.0 Calcium Level 8.9 mg/dl (8.4-10.2) Magnesium Level 2.3 mg/dl (1.7-2.2) Total Bilirubin 0.8 mg/dl (0.2-1.3) Aspartate Amino Transf (AST/SGOT) 37 U/L (0-35) Alanine Aminotransferase (ALT/SGPT) 52 U/L (0-56) Alkaline Phosphatase 94 U/L (0-126) Total Protein 7.8 g/dl (6.3-8.2) Albumin 4.6 g/dl (3.5-5.0) Salicylates Level < 10 mg/L Salicylate Last Dose Date Unk Acetaminophen Level < 10 ug/ml Serum Alcohol 358 mg/dl Toxicology Test 03/15/19 14:00 03/15/19 14:05 Urine Opiates Screen Negative Urine Barbiturates Screen Negative Ur Tricyclic Antidepressants Screen Negative Urine Phencyclidine Screen Negative Urine Amphetamines Screen Negative Urine Benzodiazepines Screen Negative Urine Cocaine Screen Negative Urine Cannabinoids Screen Negative Salicylates Level < 10 mg/L Salicylate Last Dose Date Unk Acetaminophen Level < 10 ug/ml Serum Alcohol 358 mg/dl Urinalysis Test 03/15/19 14:00 Urine Color Colorless Urine Clarity Clear Urine pH 6.0 pH (4.8-9.5) Urine Specific Ethel 1.001 Urine Protein Negative mg/dL (NEGATIVE) Urine Glucose (UA) Negative mg/dL (NEGATIVE) Urine Ketones Negative mg/dL (NEGATIVE) Urine Blood Small (NEGATIVE) Urine Nitrite Negative (NEGATIVE) Urine Bilirubin Negative (NEGATIVE) Urine Urobilinogen Negative mg/dL (0.2-1.9) Urine Leukocyte Esterase Negative (NEGATIVE) Urine RBC <1 /HPF (0-2/HPF) Urine WBC None /HPF (0-5/HPF) Urine Squamous Epithelial Cells None /LPF (</=FEW) Urine Bacteria Negative /HPF (NONE-FEW) Urine Mucus None /HPF (NONE-FEW) ED Course/Re-evaluation ED Course ED course 23 yo male comes here with suicidal ideation plan alcohol intoxication level at 350 T workup is negative patient we have voluntary admit. All for suicidal ideation with plan as well as and intoxication and alcohol abuse Decision to Disposition Date: Mar 15, 2019 Decision to Disposition Time: 15:01 Depart Departure Latest Vital Signs Vital Signs Date Time Temp Pulse Resp B/P (MAP) Pulse Ox O2 Delivery O2 Flow Rate FiO2 03/15/19 13:47 111 18 160/98 93 Room Air Impression: Primary Impression: Depression with suicidal ideation Additional Impression: Alcohol abuse Condition: Improved Disposition: XFER TO [facility] Referrals: VANESSA BANSAL (PCP) Problem Qualifiers ANNA KRUEGER MD Mar 15, 2019 14:00
[2019-03-15 14:20] LABS: PLATELET COUNT, AUTOMATED 239 K/uL (150-450)
[2019-03-15 15:40] VITALS: BP 122/72
== END 2019-03-15 15:46 ==
LOC: ER 13:48
DX: F32.9 Major depressive disorder, single episode, unspecified (principal); R45.851 Suicidal ideations; F10.10 Alcohol abuse, uncomplicated; Y90.8 Blood alcohol level of 240 mg/100 ml or more
CPT/HCPCS: 36415; 80178; 80305; 80320; 80329; 81001; 82040; 82247; 82310; 82374; 82435; 82565; 82947; 83735; 84075; 84132; 84155; 84295; 84443; 84450; 84460; 84520; 85025; 99284

== ENCOUNTER 2019-03-15 15:15 | Inpatient (IN) | payer BC ==
[2018-01-10 12:37] VITALS: Ht 195.6 cm; Wt 82.6 kg
[~2019-03-15] VITALS: Ht 195.6 cm; Wt 82.6 kg
[2019-03-15] MEDS ORDERED: ACETAMINOPHEN 325 MG TAB PO PRN (16:00)
[2019-03-15] MEDS ORDERED: MAG HYD/AL HYD/SIMETH 30ML UDC PO PRN (16:00)
[2019-03-15 16:45] VITALS: BP 153/89
[2019-03-16 05:51] VITALS: BP 146/86
[2019-03-16] MEDS: MULTIVITAMINS PO SCH (08:20)
[2019-03-16] MEDS: FOLIC ACID 1 MG TAB PO SCH (08:20)
[2019-03-16] MEDS: THIAMINE HCL 100 MG TAB PO SCH (08:20)
[2019-03-16 09:00] VITALS: BP 138/96
[2019-03-16] MEDS: ONDANSETRON 4 MG ODT TABDP SL PRN ×2 (09:21→15:07)
[2019-03-16] MEDS: DIAZEPAM 10 MG TAB PO PRN ×5 (09:21→21:49)
[2019-03-16 10:35] VITALS: BP 132/80
[2019-03-16 14:55] VITALS: BP 142/84
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
--- NOTE | 2019-03-16 20:55 | NUR ---
Sat with pt and allowed him to talk. Pt was very tearful and sad at first as he recalled his S.O. . We began to talk about treatment, the future and music and he was smiling, laughing and feeling hopeful when I left.
--- NOTE | 2019-03-16 22:57 | NUR ---
No CIWA performed, pt sleeping soundly, respirations regular, no distress at this time.
[2019-03-16 23:00] VITALS: BP 158/97
[2019-03-17 03:45] VITALS: BP 115/58
[2019-03-17 08:05] VITALS: BP 138/86
[2019-03-17] MEDS: ONDANSETRON 4 MG ODT TABDP SL PRN ×2 (08:20→16:22)
[2019-03-17] MEDS: FOLIC ACID 1 MG TAB PO SCH (09:00)
[2019-03-17] MEDS: MULTIVITAMINS PO SCH (09:00)
[2019-03-17] MEDS: THIAMINE HCL 100 MG TAB PO SCH (09:00)
--- NOTE | 2019-03-17 11:00 | [facility] Progress Note ---
[facility] - Subjective Progress Notes Subjective "I feel hopeless and like I'm a disappointment to my family." Client is seen in treatment team this am. He reports continued depression with thoughts of suicide. He is indicating acceptance of help and is reporting wanting to completed residential treatment for alcohol use disorder. His stomach is upset this am and he has vomited. He does report that he had a very good night sleep last night after receiving valium per [facility] protocol. Suicidal Ideation: Ongoing Homicidal Ideation: None [facility] - Objective Physical Exam Vital Signs Vital Signs Date Time Temp Pulse Resp B/P (MAP) Pulse Ox O2 Delivery O2 Flow Rate FiO2 03/17/19 08:05 98.7 73 18 138/86 (103) 93 Room Air Muscle Strength and Tone: WNL Gait and Station: Steady [facility] Medications Reviewed: Side Effects, Risks Allergies Reviewed: Yes Mental Status Exam General Appearance: Casual, Well Groomed, Good Eye Contact, Cooperative, Polite, Good Interaction, Tearful; No Bizarre Mannerisms, No Tics Speech: Clear, Spontaneous, Normal Rate, Normal Rhythm, Normal Volume, Normal Tone; No Delayed, No Slurred, No Garbled, No Rambling, No Inappropriate Mood: Dysthmic/Depressed Affect: Sad, Tearful, Anxious Thought Process: Organized, Logical, Goal Directed; No Loose Associations, No Flight of Ideas Thought Content: Suicidal Ideation; No Homicidal Ideation, No Delusions, No Auditory Halllucinations, No Visual Hallucinations, No Thought Broadcasting, No Ideas of Reference, No Obsessions, No Compulsions Sensorium: Clear Cognition: Alert & Oriented-Person, Alert & Oriented-Place, Alert & Oriented- Time, [id number] Memory: Immediate, Recent (grossly intact), Remote Intelligence: Average Insight Judgment: Fair [facility] Assessment and Plan [id number] Encounter Date: Mar 17, 2019 [id number] Encounter Time: 08:30 [facility] Plan: Admit to Unit, Necessary Precautions, Individual/Group Therapy, Admin/Titrate Meds, Educate Patient Tobacco Medications: Not Appropriate Condition Multpiple Antipsychotics Used: No Problems: (1) Bipolar I disorder, current episode depressed Status: Acute (2) Alcohol withdrawal Status: Acute (3) Alcohol use disorder, severe, dependence Status: Chronic Condition Client continues to experience GI upset with alcohol withdrawal treated with Zofran PRN. He is being monitored per the [facility] protocol. He continues to feel depressed with suicidal ideation. He is denying imminent plan to harm himself while on the unit. His mother and grandmother will be visiting today. He is voicing readiness for residential treatment for alcohol use disorder and the team has made contact with treatment facilities. He is hesitant to start medication for Bipolar Disorder although acknowledges symptoms of current depression and recent manic episode which caused social, legal, financial, and occupation problems. We discussed importance of treatment of Bipolar Disorder with a mood stabilizer and discussed risk of kindling effect. He admits that he often does not stay on medication for long due to fears of side effects. After discussion he is agreeable to start Ensign 450mg tonight. This will be titrated accordingly. We will continue to monitor for safety, provide psychosocial clement pport, and continue discharge planning. Problem Qualifiers (1) Alcohol withdrawal: Complication of substance-induced condition: uncomplicated Qualified Codes: F10.230 - Alcohol dependence with withdrawal, uncomplicated IGNACIO GRANADO NP Mar 17, 2019 11:00
[2019-03-17 12:10] VITALS: BP 134/72
[2019-03-17 16:15] VITALS: BP 172/102
[2019-03-17] MEDS: DIAZEPAM 10 MG TAB PO PRN ×3 (16:21→18:09)
[2019-03-17 19:30] VITALS: BP 133/67
[2019-03-17] MEDS: LITHIUM CARBONATE 450 MG TABCR PO SCH (21:42)
[2019-03-17 22:45] VITALS: BP 135/75
[2019-03-18 06:22] VITALS: BP 122/64
[2019-03-18] MEDS: THIAMINE HCL 100 MG TAB PO SCH (09:25)
[2019-03-18] MEDS: FOLIC ACID 1 MG TAB PO SCH (09:25)
[2019-03-18] MEDS: MULTIVITAMINS PO SCH (09:25)
[2019-03-18 10:21] VITALS: BP 144/77
--- NOTE | 2019-03-18 10:47 | BHS Progress Note ---
[facility] - Subjective Progress Notes Subjective "Lonely...depressed." Client remains quite tearful. He continues to report hopeless feelings. Sleep last night was broken with nightmares. He is reporting feeling improved physical symptoms related to alcohol withdrawal as he has not vomited this am and was able to eat breakfast. His last Valium per CIWA was at approximately 2000 last evening. Suicidal Ideation: Ongoing Homicidal Ideation: None [facility] - Objective Physical Exam Vital Signs Vital Signs Date Time Temp Pulse Resp B/P (MAP) Pulse Ox O2 Delivery O2 Flow Rate FiO2 03/18/19 10:21 99.0 78 16 144/77 (99) 94 Room Air Muscle Strength and Tone: WNL Gait and Station: Steady [facility] Medications Reviewed: Side Effects, Risks Allergies Reviewed: Yes Mental Status Exam General Appearance: Casual, Well Groomed, Good Eye Contact, Cooperative, Polite, Good Interaction, Tearful; No Bizarre Mannerisms, No Tics Speech: Clear, Spontaneous, Normal Rate, Normal Rhythm, Normal Volume, Normal Tone; No Delayed, No Slurred, No Garbled, No Rambling, No Inappropriate Mood: Dysthmic/Depressed Affect: Sad, Tearful, Anxious Thought Process: Organized, Logical, Goal Directed; No Loose Associations, No Flight of Ideas Thought Content: Suicidal Ideation; No Homicidal Ideation, No Delusions, No Auditory Halllucinations, No Visual Hallucinations, No Thought Broadcasting, No Ideas of Reference, No Obsessions, No Compulsions Sensorium: Clear Cognition: Alert & Oriented-Person, Alert & Oriented-Place, Alert & Oriented- Time, Ndopi-Ftiewpzu-Clzbomdov Memory: Immediate, Recent (grossly intact), Remote Intelligence: Average Insight Judgment: Fair [facility] Assessment and Plan Jzpd-bg-Fxwv Encounter Date: Mar 18, 2019 Exjy-ky-Bqci Encounter Time: 08:30 [facility] Plan: Admit to Unit, Necessary Precautions, Individual/Group Therapy, Admin/Titrate Meds, Educate Patient Tobacco Medications: Not Appropriate Condition Multpiple Antipsychotics Used: No Problems: (1) Bipolar I disorder, current episode depressed Status: Acute (2) Alcohol withdrawal Status: Acute (3) Alcohol use disorder, severe, dependence Status: Chronic Condition Client continues to report feeling depressed and lonely. He is tearful when he speaks of this. He had his first dose of Charmwood last HS and this was tolerated. Alcohol withdrawal symptoms are uncomplicated. He continues to voice interest in residential treatment for alcohol as recommended and the team continues with placement referrals. His mother and grandmother visited yesterday and his mother and brother will be visiting today. Will continue to titrate Charmwood for mood stabilization and will continue CIWA protocol for alcohol withdrawal. Problem Qualifiers (1) Alcohol withdrawal: Complication of substance-induced condition: uncomplicated Qualified Codes: F10.230 - Alcohol dependence with withdrawal, uncomplicated IGNACIO GRANADO NP Mar 18, 2019 10:47
[2019-03-18 14:16] VITALS: BP 148/69
[2019-03-18 18:55] VITALS: BP 120/76
[2019-03-18] MEDS: LITHIUM CARBONATE 450 MG TABCR PO SCH (21:02)
[2019-03-19 01:30] VITALS: BP 152/94
[2019-03-19] MEDS ORDERED: QUEtiapine FUM 100 MG TAB PO PRN (10:00)
[2019-03-19] MEDS: THIAMINE HCL 100 MG TAB PO SCH (12:01)
[2019-03-19] MEDS: FOLIC ACID 1 MG TAB PO SCH (12:01)
[2019-03-19] MEDS: MULTIVITAMINS PO SCH (12:01)
[2019-03-19 13:46] VITALS: BP 145/75
--- NOTE | 2019-03-19 15:46 | BHS Progress Note ---
[facility] - Subjective Progress Notes Subjective Pt seen in treatment team. He still has a lot of depression, bereavement, self- deprecation, guilt-- but talking about all of it, working hard in treatment. Met with family over weekend and they are supportive. He still wants to go to residential treatment and we are working to apply to a program. PPD was placed yesterday. He is tolerating lithium well so far, denies N/V/D. Sleep was interrupted last night-- will increase lithium to 600 mg tonight and will also try a prn of seroquel 50 mg. Suicidal Ideation: Resolving Homicidal Ideation: None [facility] - Objective Physical Exam Vital Signs Vital Signs 03/19/19 03/19/19 01:30 13:46 Temp 100.3 Pulse 85 Resp 15 B/P (MAP) 145/75 (98) Pulse Ox 96 O2 Delivery Room Air Muscle Strength and Tone: WNL Gait and Station: Steady [facility] Medications Reviewed: Side Effects, Risks Allergies Reviewed: Yes Mental Status Exam General Appearance: Casual, Well Groomed, Good Eye Contact, Cooperative, Polite, Good Interaction, Tearful; No Bizarre Mannerisms, No Tics Speech: Clear, Spontaneous, Normal Rate, Normal Rhythm, Normal Volume, Normal Tone; No Delayed, No Slurred, No Garbled, No Rambling, No Inappropriate Mood: Dysthmic/Depressed Affect: Sad, Tearful, Anxious Thought Process: Organized, Logical, Goal Directed; No Loose Associations, No Flight of Ideas Thought Content: Suicidal Ideation; No Homicidal Ideation, No Delusions, No Auditory Halllucinations, No Visual Hallucinations, No Thought Broadcasting, No Ideas of Reference, No Obsessions, No Compulsions Sensorium: Clear Cognition: Alert & Oriented-Person, Alert & Oriented-Place, Alert & Oriented- Time, Rthfu-Jubfnfqg-Sxqxvriiw Memory: Immediate, Recent (grossly intact), Remote Intelligence: Average Insight Judgment: Fair [facility] Assessment and Plan Svzx-kh-Ugnd Encounter Date: Mar 19, 2019 Hyxq-zq-Zluk Encounter Time: 08:30 [facility] Plan: Admit to Unit, Necessary Precautions, Individual/Group Therapy, Admin/Titrate Meds, Educate Patient Tobacco Medications: Not Appropriate Condition Multpiple Antipsychotics Used: No Problems: (1) Alcohol withdrawal Status: Acute (2) Alcohol use disorder, severe, dependence Status: Chronic (3) Bipolar I disorder, current episode depressed Status: Acute Problem Qualifiers (1) Alcohol withdrawal: Complication of substance-induced condition: uncomplicated Qualified Codes: F10.230 - Alcohol dependence with withdrawal, uncomplicated YULI EMRIDA MD Mar 19, 2019 15:46
[2019-03-19] MEDS ORDERED: LITHIUM CARBONATE 300 MG TABCR PO SCH (21:00)
[2019-03-20 06:21] VITALS: BP 127/63
[2019-03-20] MEDS: MULTIVITAMINS PO SCH (08:20)
[2019-03-20] MEDS: THIAMINE HCL 100 MG TAB PO SCH (08:20)
[2019-03-20] MEDS: FOLIC ACID 1 MG TAB PO SCH (08:20)
--- NOTE | 2019-03-20 11:17 | BHS Progress Note ---
[facility] - Subjective Progress Notes Subjective Pt seen in conference room with staff. Rating depression at 4-5/10, denies SI. Tolerating lithium well, denies n/v/d. Still interrupted sleep, several awakenings, and when he wakes, he reports hearing voices. Says his mood feels more stable, less anxiety overall, feels the lithium is helping. Repeat U/A was WNL. He is working on making a choice between rehab in [place] or a 30 day program in [place]. Family have been involved and supportive. Suicidal Ideation: None Homicidal Ideation: None [facility] - Objective Physical Exam Vital Signs Vital Signs 03/20/19 06:21 Temp 98.4 Pulse 51 Resp 15 B/P (MAP) 127/63 (84) Pulse Ox 94 O2 Delivery Room Air Muscle Strength and Tone: WNL Gait and Station: Steady [facility] Medications Reviewed: Side Effects, Risks Allergies Reviewed: Yes Mental Status Exam General Appearance: Casual, Well Groomed, Good Eye Contact, Cooperative, Polite, Good Interaction; No Bizarre Mannerisms, No Tics Speech: Clear, Spontaneous, Normal Rate, Normal Rhythm, Normal Volume, Normal Tone; No Delayed, No Slurred, No Garbled, No Rambling, No Inappropriate Mood: Dysthmic/Depressed Affect: Sad, Tearful, Anxious Thought Process: Organized, Logical, Goal Directed; No Loose Associations, No Flight of Ideas Thought Content: Suicidal Ideation; No Homicidal Ideation, No Delusions, No Auditory Halllucinations, No Visual Hallucinations, No Thought Broadcasting, No Ideas of Reference, No Obsessions, No Compulsions Sensorium: Clear Cognition: Alert & Oriented-Person, Alert & Oriented-Place, Alert & Oriented- Time, Rnqaa-Vyaxdahm-Uihdasosy Memory: Immediate, Recent, Remote Intelligence: Average Insight Judgment: Fair [facility] Assessment and Plan Qswi-gt-Dwdz Encounter Date: Mar 20, 2019 Kmor-rl-Eywb Encounter Time: 10:00 [facility] Plan: Admit to Unit, Necessary Precautions, Individual/Group Therapy, Admin/Titrate Meds, Educate Patient Tobacco Medications: Not Appropriate Condition Multpiple Antipsychotics Used: No Problems: (1) Alcohol withdrawal Status: Acute (2) Alcohol use disorder, severe, dependence Status: Chronic (3) Bipolar I disorder, current episode depressed Status: Acute Problem Qualifiers (1) Alcohol withdrawal: Complication of substance-induced condition: uncomplicated Qualified Codes: F10.230 - Alcohol dependence with withdrawal, uncomplicated YULI MERIDA MD Mar 20, 2019 11:17
[2019-03-20] MEDS ORDERED: LITHIUM CARBONATE 300 MG TABCR PO SCH (21:00)
[2019-03-21 05:20] VITALS: BP 108/58
[2019-03-21] MEDS: THIAMINE HCL 100 MG TAB PO SCH (08:17)
[2019-03-21] MEDS: FOLIC ACID 1 MG TAB PO SCH (08:17)
[2019-03-21] MEDS: MULTIVITAMINS PO SCH (08:17)
[2019-03-21] MEDS ORDERED: LITH300T5 PO (08:59)
[2019-03-21] MEDS ORDERED: QUET50TA21 PO (09:00)
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
== END 2019-03-21 09:12 | DRG 897 ==
LOC: BHS 15:15
PROVIDERS: ADMIT Psychiatry & Neurology Psychiatry; ATTEND Psychiatry & Neurology Psychiatry
DX: F10.230 Alcohol dependence with withdrawal, uncomplicated (principal); R45.851 Suicidal ideations; F31.9 Bipolar disorder, unspecified; G47.00 Insomnia, unspecified; S51.812A Laceration without foreign body of left forearm, initial encounter; Y90.8 Blood alcohol level of 240 mg/100 ml or more; Z91.5 Personal history of self-harm; Z88.5 Allergy status to narcotic agent; Z63.4 Disappearance and death of family member; Z72.52 High risk homosexual behavior
CPT/HCPCS: 36415; 80074; 80178; 81001; 82040; 82247; 82310; 82374; 82435; 82565; 82947; 84075; 84132; 84155; 84295; 84443; 84450; 84460; 84520; 86580; 86703; 87491; 87591; S0119